=== PATIENT | female | born 1960 | race African-American/Black ===

== ENCOUNTER 2020-03-22 08:22 | Emergency (ER) | payer SELFPAY | END 2020-03-22 09:20 | disposition home or self-care (01) | LOC: ERS 08:22 | DX: I10 Essential (primary) hypertension (principal); E11.9 Type 2 diabetes mellitus without complications; F17.210 Nicotine dependence, cigarettes, uncomplicated; Z79.82 Long term (current) use of aspirin; Z79.4 Long term (current) use of insulin; Z79.899 Other long term (current) drug therapy | CPT/HCPCS: 99281 ==